=== PATIENT | female | born 1945 | race Caucasian/White ===

== ENCOUNTER → 2016-05-07 | Outpatient (CLI) | payer BC, MEDICARE | LOC: RAD 13:02 | PROVIDERS: ATTEND Orthopaedic Surgery | DX: M25.561 Pain in right knee (principal); M17.11 Unilateral primary osteoarthritis, right knee | CPT/HCPCS: 73721 ==

== ENCOUNTER → 2016-05-29 | Outpatient (CLI) | payer BC, MEDICARE ==
[~2016-05-29] MED LIST: methylPREDNISolone 80 MG/ML (DEPO MEDROL) VIAL IM ONE
== END ==
LOC: PMC 08:49
PROVIDERS: ATTEND Family Medicine
PROC: 3E0R33Z Introduction of Anti-inflammatory into Spinal Canal, Percutaneous Approach (ICD-10-PCS; principal; 2016-05-29)
DX: M54.5 Low back pain (principal); M54.16 Radiculopathy, lumbar region

== ENCOUNTER → 2016-06-12 | Outpatient (CLI) | payer BC, MEDICARE | LOC: ASC 12:49 → PMC 12:49 → EDSTATUS 13:00 | PROVIDERS: ATTEND Family Medicine | DX: M54.17 Radiculopathy, lumbosacral region (principal); E11.9 Type 2 diabetes mellitus without complications; J44.9 Chronic obstructive pulmonary disease, unspecified; Z79.82 Long term (current) use of aspirin; Z79.84 Long term (current) use of oral hypoglycemic drugs ==

== ENCOUNTER → 2016-07-25 | Outpatient (CLI) | payer BC, MEDICARE ==
[~2016-07-25] MED LIST changes: +ASPI-586 PO; +CEFD300C PO; +CYCL10TA45 PO; +DILT360C29 PO; +DULA1.5P SQ; +ESCI10TA PO; +FLUC150T PO; +HYDR-3702 PO; +LIRA0.6P2 SC; +LOSA1TAB19 PO; +LSRT50T PO; +METF1000 PO; +NAPR220C11 PO; +NEBI2.5T2 PO; +NF-CIPDEC LEFT EAR; +NF-CIPDEC OT; +OMEP20TA PO; +SITA100T PO; -methylPREDNISolone 80 MG/ML (DEPO MEDROL) VIAL IM ONE
[2016-07-25 10:23] LABS: BILIRUBIN,URINE Negative (Negative); CLARITY,URINE Clear; COLOR,URINE Yellow; GLUCOSE, URINE (UA) Negative (Negative); LEUKOCYTE ESTERASE ,URINE Negative (Negative); UROBILINOGEN,URINE 0.2 mg/dL (0.2-1.0)
[2016-07-25 10:24] LABS: BASOPHILS % (AUTO) 0 % (0-2); EOSINOPHILS # (AUTO) 0.1 10^3uL; EOSINOPHILS % (AUTO) 2 % (0-4); LYMPHOCYTES # (AUTO) 1.7 X10^3; MEAN CORPUSCULAR HGB CONC 31.8 g/dL (31.0-37.0); MEAN CORPUSCULAR VOLUME 84 FL (80-100); MEAN PLATELET VOLUME 10.1 FL (6.0-9.5); MONOCYTES # (AUTO) 0.6 X10^3; MONOCYTES % (AUTO) 9 % (3-11); NEUTROPHILS # (AUTO) 4.3 X10^3; NEUTROPHILS % (AUTO) 64 % (51-67); PLATELET COUNT 181 10^3uL (150-450); WHITE BLOOD COUNT 6.81 10^3uL (4.0-11.0)
[2016-07-25 10:34] LABS: ALBUMIN 4.4 g/dL (3.4-5.0); ANION GAP 17.5 MEQ/L (3-15); CALCULATED IONIZED CALCIUM 3.7 mg/dL (3.8-4.6); TOTAL PROTEIN 8.5 g/dL (6.4-8.5)
[2016-07-25 10:41] LABS: MEAN CORPUSCULAR HEMOGLOBIN 26.8 PG (26.0-34.0)
[2016-07-25 10:46] LABS: MAGNESIUM* 1.2 mg/dL (1.6-2.3)
[2016-07-25 11:06] LABS: ERYTHROCYTE SEDIMENTATION RT* 31 mm/hr (0-23)
--- NOTE | 2016-07-25 11:47 | Diagnostic Imaging Report ---
INDICATION: Hip pain. 9:35 AM. AVAILABLE COMPARISONS: None FINDINGS: Obtained views demonstrated no evidence for fracture, dislocation or other significant abnormality. No focal osseous lesion is seen. The femoral acetabular joint is within normal limits. The sacroiliac joint is not visualized. IMPRESSION: 1. Negative left hip x-rays. Dictated by: Dictated on workstation # [id number]
--- NOTE | 2016-07-26 17:05 | Diagnostic Imaging Report ---
EXAM: DIG DILEEP BILAT SCREEN W CAD The current study was also evaluated with a Computer Aided Detection (CAD) system. INDICATION: Screening. COMPARISON: Mammograms 05/13/2014, 05/16/2015. DENSITY: Almost Entirely fatty. FINDINGS: No significant change. Postoperative changes in the right breast. No mass, calcification or architectural distortion suspicious for malignancy in either breast. IMPRESSION: No mammographic findings suspicious for malignancy. RECOMMENDATION: Routine screening mammography in one year. ACR BI-RADS Category 2: Benign findings. Result letter will be mailed to the patient. Note: At least 10% of breast cancer is not imaged by mammography. Dictated by: Dictated on workstation # [id number]
== END ==
LOC: RAD 09:24
PROVIDERS: ATTEND Family Medicine
DX: Z12.31 Encounter for screening mammogram for malignant neoplasm of breast (principal); M25.552 Pain in left hip; I10 Essential (primary) hypertension; M62.89 Other specified disorders of muscle; M1A.9XX0 Chronic gout, unspecified, without tophus (tophi)
CPT/HCPCS: 36415; 73502; 80053; 80061; 81003; 82043; 82550; 83036; 83735; 84550; 85025; 85652; 86141; G0202

== ENCOUNTER → 2016-08-09 | Outpatient (CLI) | payer BC, MEDICARE ==
--- NOTE | 2016-08-09 09:32 | Diagnostic Imaging Report ---
PROCEDURE: MRI lumbar spine. TECHNIQUE: A multiplanar/multisequence MRI of the lumbar spine was performed without contrast. INDICATION: Weakness down the leg. COMPARISON: 03/16/2012. FINDINGS: The conus is within normal limits. No intradural lesion is identified. The bone marrow is negative for malignant neoplasm or discitis/osteomyelitis. T12-L1: Mild degenerative disc bulging with minimal central stenosis. L1-2: Moderate diffusely bulging intervertebral disc. There is a small area of signal abnormality inferior to the posterior margin of the bulging disc that is probably inferiorly migrated disc material. There is a moderate to severe decrease in the cross-sectional CSF surface area of the thecal sac. The L1 nerve roots and the neural foramina are not compressed. The degree of stenosis at this level has increased since the comparison examination. L2-3: Disc dehydration with normal disc height. Mild diffuse bulge. L3-4: Disc dehydration. Mild diffuse disc bulge. No compression of the L3 nerve roots in the superior exit foramina. Minimal central stenosis. L4-5: Mild diffusely bulging intervertebral disc. Bilateral hypertrophic facet arthropathy is present. There is a moderate decrease in the cross-sectional CSF surface area of the thecal sac. Moderate bilateral foraminal stenosis. Slight compression of the anterior-inferior aspect of the right L4 nerve root exiting the superior right exit foramina. This slight compression is a change from 03/16/2012. L5-S1: Mild facet degenerative changes. No central or lateral stenosis. The visualized portions of the abdominal aorta are negative. IMPRESSION: Multilevel degenerative change as described above with slight progression at L1-2 since the comparison study. Dictated by: Dictated on workstation # [id number]
== END ==
LOC: RAD 06:47
PROVIDERS: ATTEND Family Medicine
DX: M54.16 Radiculopathy, lumbar region (principal)
CPT/HCPCS: 72148